=== PATIENT | female | born 1985 | race African-American/Black ===

== ENCOUNTER 2023-01-20 21:02 | Emergency (ER) | payer MEDICARE, SELFPAY ==
--- NOTE | ~2023-01-20 | XR_ITS ---
Clinical Indication: Dyspnea PA and lateral views of the chest: Comparison: None Findings: The lungs are clear, without evidence of focal consolidation or pleural effusion. Cardiome diastinal silhouette is within normal limits. Bones and soft tissues are unremarkable. Impression: Normal chest. Reviewed, dictated and finalized at location . OPERATIONS COORDINATOR Impression: Normal chest.
[2023-01-20 21:08] VITALS: BP 133/85; PULSE 99; RESP 20; TEMP 36.4; O2SAT 99
--- NOTE | 2023-01-20 23:15 | ED.GENADULT ---
HPI - General Adult General Chief complaint: Unspecified Stated complaint: multiple complaint Time Seen by Provider: 01/20/23 23:14 History of Present Illness HPI narrative: 37-year-old female reports for evaluation for multiple medical complaints. Patient states this morning she went to [facility] to have a physical done for her work. States she had an influenza vaccine and TB test done. She was also fitted for an N95 mask. states after, she developed shortness of breath and an itchy rash to her left leg. She reports generalized body aches from her back down to her legs. she also states she has intermittent chest pain, no aggravating or alleviating factors. She denies fever, cough or congestion , sore throat, otalgia, abdominal pain, nausea vomiting, diarrhea, dysuria or hematuria. Denies hx of VTE, leg swelling, leg pain, hormone use, recent surgeries or hospitalizations. Pt admits to smoking 1ppd. Related Data Allergies Allergy/AdvReac Type Severity Reaction Status Date / Time morphine Allergy Hives Verified 01/20/23 21:07 Review of Systems Review of Systems: CONSTITUTIONAL: Denies fever, chills, or sweats. EYES: Denies visual changes, redness, or discharge. ENT: Denies rhinorrhea, congestion, sore throat, or otalgia. CARDIOVASCULAR: see HPI RESPIRATORY: see HPI GASTROINTESTINAL: Denies abdominal pain, nausea, vomiting, or diarrhea. GENITOURINARY: Denies dysuria or hematuria. SKIN: see HPI MUSCULOSKELETAL: see HPI NEUROLOGIC: Denies headache, numbness, or weakness. PSYCHIATRIC: Denies anxiety or depression. Exam Narrative: GENERAL: Well-appearing, well-nourished, and in no acute distress. patient resting comfortably in exam bed. HEAD: Normocephalic, atraumatic. EYES: PERRLA and EOMI. ENT: Nares clear, no rhinorrhea or epistaxis. Mucous membranes moist. No lip, tongue or pharyngeal edema. No airway compromise. NECK: Supple. CHEST: Clear to auscultation. No respiratory distress. HEART: Regular rate and rhythm. No murmur heard. Normal peripheral pulses. ABDOMEN: Soft, nontender, nondistended, normal active bowel sounds. EXTREMITIES: Normal range of motion. No edema. SKIN: 1 wheal to the proximal anterior left thigh that is pruritic. No other wheals noted. negative Nikolsky sign. No induration or fluctuation. No necrosis. no overlying skin changes to influenza vaccine injection site, however it is tender to palpation. NEURO: No focal deficits. Alert and oriented x3 Course Vital Signs Vital signs: Vital Signs Temperature 97.6 F 01/20/23 21:08 Pulse Rate 99 01/20/23 21:08 Respiratory Rate 20 01/20/23 21:08 Blood Pressure 133/85 01/20/23 21:08 Pulse Oximetry 99 01/20/23 21:08 Oxygen Delivery Room Air 01/20/23 21:08 Temperature 97.6 F 01/20/23 21:08 Pulse Rate 64 01/21/23 01:51 Respiratory Rate 14 01/21/23 01:51 Blood Pressure 126/77 01/21/23 01:51 Pulse Oximetry 100 01/21/23 01:51 Oxygen Delivery Room Air 01/20/23 21:08 Medical Decision Making MDM Narrative Medical decision making narrative: 37-year-old female reports for evaluation for generalized body aches, chest pain, shortness of breath, and pleuritic rash to her left leg after she had a physical and was fitted for 95 vascular received a influenza vaccine and TB skin test. See HPI for further history. Vitals are stable and she is well-appearing on exam. Exam significant for the above. Cbc without leukocytosis. Hemoglobin is 10.9 with a normal MCV, no prior for comparison. chemistry is without electrolyte abnormalities. Urinalysis with 4+ ketones and high specific gravity concerning for dehydration. She has 1+ leuk esterase and 35 RBCs of 4+ bacteria, She denies symptoms of UTI. negative. EKG shows sinus bradycardia with a rate of 56bpm, No ischemic changes.: Trop x2 negative. BNP normal. She is PERC negative. CXR w/o acute cardiopulmonary abnormality. Covid and
--- NOTE | 2023-01-20 23:35 | ECG_ITS ---
Measurements Intervals [place] Rate: 56 P: 60 OK: 175 QRS: 60 QRSD: 86 T: 44 QT: 449 QTc: 435 Interpretive Statements SINUS BRADYCARDIA BASELINE ARTIFACT- I, II BORDERLINE ECG NO PREVIOUS ECG AVAILABLE FOR COMPARISON Electronically Signed On 01-21-2023 6:24:56 [employer] by Diego Hoffmann D.O.
[2023-01-20 23:56] VITALS: PULSE 65
[2023-01-20] MEDS: SODIUM CHLORIDE 0.9% IV 1,000 ML 999 ML IV CONT (23:58)
[2023-01-20] MEDS: diphenhydrAMINE HCl INJ 50 MG/ML VIAL 25 MG IV PUSH (23:58)
[2023-01-20] MEDS: FAMOTIDINE 20 MG/2 ML VIAL IV PUSH (23:59)
[2023-01-20] MEDS: methylPREDNISolone SOD SUCC 125 MG VIAL IV PUSH (23:59)
[2023-01-21 00:01] VITALS: BP 144/89; PULSE 60; RESP 15; O2SAT 100
--- NOTE | 2023-01-21 00:03 | PC.NURSE ---
pt to xray via stretcher at this time, fluids infusing
[2023-01-21 00:18] LABS: Basophils Percent Auto 0.8 % (0.2-1.2); Eosinophils Percent Auto 0.6 % (0-4.4); Hematocrit 33.9 % (37.0-47.0); Hemoglobin 10.9 g/dL (12.0-15.0); Immature Granulocyte Absolute 0.01 K/mm3 (0.00-0.031); Immature Granulocyte Percent A 0.2 % (0-0.5); Lymphocytes Absolute Auto 1.83 K/mm3 (0.9-3.2); Lymphocytes Percent Auto 35.6 % (18.3-44.2); Mean Corpuscular HGB Conc 32.2 g/dl (32-36); Mean Corpuscular Hemoglobin 27.4 pg (26-34); Mean Corpuscular Volume 85.2 fl (80-100); Mean Platelet Volume 12.2 fl (7.4-10.4); Monocytes Absolute Auto 0.4 K/mm3 (0.1-0.6); Monocytes Percent Auto 7.2 % (2.6-8.5); Neutrophils Absolute Auto 2.9 K/mm3 (1.3-6.7); Neutrophils Percent Auto 55.6 % (45.5-73.1); Platelet Count Result 205 k/mm3 (150-375); Red Blood Count 3.98 M/mm3 (4.2-5.4); White Blood Count 5.1 K/mm3 (4.5-10.0)
[2023-01-21 00:34] LABS: Alanine Aminotransferase 14 U/L (6-35); Albumin Level 2.6 g/dL (3.5-5.1); Alkaline Phosphatase 71 U/L (38-126); Anion Gap 8 mmol/L (8-16); Aspartate Amino Transferase 26 U/L (14-36); Bilirubin,Total 1.1 mg/dL (0.2-1.3); Blood Urea Nitrogen 17 mg/dL (7-17); Calcium 8.9 mg/dL (8.4-10.2); Carbon Dioxide 24 mmol/L (22-30); Chloride 105 mmol/L (98-107); Estimated CRCL calculation 135 ml/min; Estimated Glomerular Filt Rate > 60; Glucose 85 mg/dL (65-110); Potassium 3.4 mmol/L (3.4-5.0); Sodium 137 mmol/L (137-145)
[2023-01-21 00:44] LABS: NT Pro B Type Natriuretic Pept 29 pg/mL (19.9-100); Troponin I < 0.012 ng/mL (0.000-0.034)
[2023-01-21 00:55] LABS: Appearance Urine Cloudy (Clear); Bacteria Urine 1+ /hpf; Bilirubin Urine Negative (Negative); Blood Urine Negative (Negative); Color Urine Dark Yellow (Yellow); Glucose Urine UA Negative (Negative); Ketones Urine 4+ mg/dL (Negative); Leukocyte Esterase Ur 1+ LEU/UL (Negative); Mucus Urine Present /lpf; Nitrate Urine Negative (Negative); Non Pathogenic Casts 0-2; Protein Urine 1+ mg/dL (Negative); Squamous Epithelial Cell Urine Few /hpf (Few); WBC Urine 0-5 /hpf
[2023-01-21 00:56] LABS: Influenza A QL RT-PCR Negative (Negative); Influenza B QL RT-PCR Negative (Negative); SARS-CoV-2 RNA PCR Negative (Negative)
[2023-01-21 01:03] LABS: Specific Grav Ur 1.037 (1.001-1.035)
[2023-01-21 01:04] LABS: Add Urine Microscopic? YES
[2023-01-21] MEDS: SODIUM CHLORIDE 0.9% IV 1,000 ML 999 ML IV CONT (01:47)
[2023-01-21 01:51] VITALS: BP 126/77; PULSE 64; RESP 14; O2SAT 100
[2023-01-21 04:04] LABS: Troponin I < 0.012 ng/mL (0.000-0.034)
[2023-01-21 04:24] VITALS: BP 119/86; PULSE 68; RESP 17; O2SAT 97
== END 2023-01-21 04:25 | disposition home or self-care (01) ==
PROVIDERS: Emergency Provider Physician Assistant
DX: R06.00 Dyspnea, unspecified (principal); L50.9 Urticaria, unspecified; R07.89 Other chest pain; Z20.822 Contact with and (suspected) exposure to COVID-19; F17.210 Nicotine dependence, cigarettes, uncomplicated; R00.1 Bradycardia, unspecified
CPT/HCPCS: 36415; 71046; 80053; 81001; 81025; 83880; 84484; 85025; 87636; 93005; 96361; 96374; 96375; 99284; J1200; J2930; J7030